=== PATIENT | female | born 1935 | race Caucasian/White ===

== ENCOUNTER 2024-05-04 15:03 | Observation (INO) | payer MEDICARE ==
[~2024-05-04] VITALS: Ht 162.6 cm; Wt 54.4 kg
[2024-05-04 15:17] VITALS: BP 108/69; PULSE 74; RESP 18; TEMP 97.5; O2SAT 98
[2024-05-04 16:32] LABS: BASOPHILS # (AUTO) 0.1 K/uL (0.00-0.22); BASOPHILS % (AUTO) 0.9 % (0.0-2.0); EOSINOPHILS % (AUTO) 0.5 % (0.0-4.0); HEMATOCRIT 37.1 % (36-48); HEMOGLOBIN 12.1 g/dL (12.0-16.0); LYMPHOCYTES % (AUTO) 10.7 % (20.5-51.1); MEAN CORPUSCULAR HEMOGLOBIN 29 pg (27-31); MEAN CORPUSCULAR HGB CONC 33 g/dL (33-37); MEAN CORPUSCULAR VOLUME 87.3 fL (80-94); MONOCYTES # (AUTO) 0.6 K/uL (0.8-1.0); MONOCYTES % (AUTO) 6.8 % (1.7-9.3); NEUTROPHILS # (AUTO) 7.4 K/uL (1.8-7.7); NEUTROPHILS % (AUTO) 81.1 % (42.2-75.2); PLATELET COUNT (AUTO) 284 K/uL (140-450); RED BLOOD CELL COUNT(AUTO) 4.25 MIL/uL (4.20-5.40); RED CELL DISTRIBUTION WIDTH 15.8 % (11.6-13.7); WHITE BLOOD COUNT (AUTO) 9.1 K/uL (4.8-10.8)
[2024-05-04 16:48] LABS: ANION GAP 12.5 (8-16); CALCIUM 9.3 mg/dL (8.5-10.1); CARBON DIOXIDE 27.4 mmol/L (21-32); CHLORIDE 105 mmol/L (98-107); CREATININE 1.2 mg/dL (0.6-1.3); GLUCOSE 165 mg/dL (74-106); INR 0.99 (0.8-1.2); PARTIAL THROMBOPLASTIN TIME 20.8 secs (22-35.6); POTASSIUM 3.9 mmol/L (3.5-5.1); PROTHROMBIN TIME 10.4 secs (10.8-13.4); SODIUM SERUM 141 mmol/L (136-145); UREA NITROGEN, BLOOD 20 mg/dL (7-18)
[2024-05-04 18:01] VITALS: O2SAT 97
[2024-05-04] MEDS ORDERED: LEVO0.0712 PO (18:46)
[2024-05-04] MEDS ORDERED: KEN.1C TP (18:46)
[2024-05-04] MEDS ORDERED: DONE10TA37 PO (18:46)
[2024-05-04] MEDS ORDERED: CHOL1CAP11 PO (18:46)
[2024-05-04] MEDS ORDERED: ASPI-1749 PO (18:46)
[2024-05-04] MEDS ORDERED: MAG SULF 2000 MG/WATER PREMIX 50 ML IV PRN (19:15)
[2024-05-04] MEDS ORDERED: KCL 20 MEQ IN 100 mL PREMIX 200 ML IV PRN (19:15)
[2024-05-04] MEDS ORDERED: ACETAMINOPHEN 325 MG TAB PO PRN (19:15)
[2024-05-04] MEDS ORDERED: ONDANSETRON 4 MG/2 ML VIAL IVP PRN (19:15)
[2024-05-04] MEDS ORDERED: HYDROcodone/APAP 5/325 MG 1 TAB TAB PO PRN (19:15)
[2024-05-04] MEDS ORDERED: INSULIN LISPRO SLIDING SCALE 100 UNITS/ML VIAL SUBQ PRN (19:20)
[2024-05-04] MEDS ORDERED: DEXTROSE 50% 50 ML SYR IVP PRN (19:20)
[2024-05-04 19:24] LABS: APPEARANCE,URINE CLEAR (CLEAR); BILIRUBIN,URINE NEGATIVE (NEGATIVE); BLOOD, URINE 1+ (NEGATIVE); COLOR,URINE YELLOW (YELLOW); LEUKOCYTE ESTERASE ,URINE NEGATIVE (NEGATIVE); NITRITE, URINE NEGATIVE (NEGATIVE); PROTEIN,URINE NEGATIVE (NEGATIVE); UGLUCOSE NEGATIVE (NEGATIVE)
[2024-05-04] MEDS: DEXT 5% /NACL 0.9% 1,000 ML IV SCH (20:00)
[2024-05-04] MEDS: BLOOD GLUCOSE MONITORING 1 DEV DEV FS SCH (21:00)
[2024-05-05] MEDS ORDERED: ACETAMINOPHEN 325 MG TAB PO PRN (00:25)
[2024-05-05 06:26] LABS: BASOPHILS # (AUTO) 0.1 K/uL (0.00-0.22); EOSINOPHILS # (AUTO) 0.1 K/uL (0-0.4); EOSINOPHILS % (AUTO) 1.9 % (0.0-4.0); HEMATOCRIT 35.2 % (36-48); HEMOGLOBIN 11.7 g/dL (12.0-16.0); LYMPHOCYTES # (AUTO) 1.9 K/uL (2.5-16.5); LYMPHOCYTES % (AUTO) 32.2 % (20.5-51.1); MEAN CORPUSCULAR HEMOGLOBIN 29 pg (27-31); MEAN CORPUSCULAR HGB CONC 33 g/dL (33-37); MEAN CORPUSCULAR VOLUME 85.7 fL (80-94); MONOCYTES # (AUTO) 0.7 K/uL (0.8-1.0); MONOCYTES % (AUTO) 11.7 % (1.7-9.3); NEUTROPHILS # (AUTO) 3.2 K/uL (1.8-7.7); NEUTROPHILS % (AUTO) 53.2 % (42.2-75.2); PLATELET COUNT (AUTO) 290 K/uL (140-450); RED BLOOD CELL COUNT(AUTO) 4.11 MIL/uL (4.20-5.40); RED CELL DISTRIBUTION WIDTH 15.7 % (11.6-13.7); WHITE BLOOD COUNT (AUTO) 5.9 K/uL (4.8-10.8)
[2024-05-05] MEDS ORDERED: LEVOTHYROXINE 0.075 MG TAB PO SCH (06:30)
[2024-05-05] MEDS ORDERED: LEVOTHYROXINE 0.05 MG TAB ONE (07:22)
[2024-05-05] MEDS: LEVOTHYROXINE 0.075 MG TAB PO SCH (07:26)
[2024-05-05 07:46] LABS: CALCIUM 8.8 mg/dL (8.5-10.1); CARBON DIOXIDE 27.8 mmol/L (21-32); CHLORIDE 109 mmol/L (98-107); GLUCOSE 104 mg/dL (74-106); POTASSIUM 3.8 mmol/L (3.5-5.1); SODIUM SERUM 144 mmol/L (136-145); UREA NITROGEN, BLOOD 12 mg/dL (7-18)
[2024-05-05 08:01] LABS: ALANINE AMINOTRANSFERASE 15 U/L (12-78); ALBUMIN 2.9 g/dL (3.4-5.0); ALKALINE PHOSPHATASE 83 U/L (50-136); ASPARTATE AMINOTRANSFERASE 17 U/L (15-37); MAGNESIUM 2.2 mg/dL (1.8-2.4); TOTAL BILIRUBIN 0.4 mg/dL (0.0-1.0); TOTAL PROTEIN, SERUM 6.1 g/dL (6.4-8.2)
[2024-05-05] MEDS ORDERED: DONEPEZIL 10 MG TAB PO SCH (09:00)
[2024-05-05] MEDS ORDERED: ASPIRIN 81 MG TAB.CHEW PO SCH (09:00)
[2024-05-05 10:00] VITALS: PULSE 66; RESP 18; O2SAT 97
[2024-05-05 16:00] VITALS: BP 129/63; PULSE 63; RESP 18; TEMP 98.3; O2SAT 98
[2024-05-05 20:00] VITALS: PULSE 83
[2024-05-05] MEDS: DONEPEZIL 10 MG TAB PO SCH (20:30)
[2024-05-05 21:30] VITALS: PULSE 63; RESP 17; O2SAT 98
[2024-05-06] VITALS: PULSE 61
[2024-05-06 01:22] VITALS: BP 109/67; PULSE 73; RESP 17; TEMP 97.3; O2SAT 97
[2024-05-06 01:26] VITALS: PULSE 73
[2024-05-06 04:00] VITALS: PULSE 58; PULSE 73
[2024-05-06 08:00] VITALS: BP 122/73; PULSE 53; RESP 18; TEMP 97.8; O2SAT 98
[2024-05-06] MEDS: ASPIRIN 81 MG TAB.CHEW PO SCH (09:27)
[2024-05-06 13:13] VITALS: BP 122/73; PULSE 63; RESP 18; TEMP 97.8
== END 2024-05-06 13:55 | disposition home or self-care (01) ==
LOC: MED 15:03 → UNDOADMOB 19:15 → MTU 19:15 → INTOOBSV 19:15 → MTU 05-05 00:28
PROVIDERS: ADMIT Internal Medicine; ATTEND Internal Medicine
DX: R55 Syncope and collapse (principal); R79.89 Other specified abnormal findings of blood chemistry; E03.9 Hypothyroidism, unspecified; F03.90 Unspecified dementia, unspecified severity, without behavioral disturbance, psychotic disturbance, mood disturbance, and anxiety; Z90.710 Acquired absence of both cervix and uterus; Z79.899 Other long term (current) drug therapy
CPT/HCPCS: 36415; 70450; 71045; 78580; 78582; 80048; 80053; 81003; 82948; 83735; 83880; 84100; 84484; 85025; 85379; 85610; 85730; 87081; 93880; 96360; 96361; 96372; 97112; 97116; 97163-GP; 97530; 99284; G0378; J1644; J1815; Q0092